=== PATIENT | female | born 1970 | race Caucasian/White ===

== ENCOUNTER 2021-03-16 11:53 | Emergency (ER) | payer OTHER ==
[2021-03-16] MEDS ORDERED: ZITHROMAX250 MG PO (13:52)
[2021-03-16] MEDS ORDERED: DELSYM30 MG/5 ML PO (13:52)
[2021-03-16] MEDS ORDERED: PREDNISONE50 MG PO (13:52)
[2021-03-16] MEDS ORDERED: ATROVENT-HFA12.9 GM INH (13:52)
== END 2021-03-16 14:12 | disposition home or self-care (01) ==
LOC: ER1 11:53
DX: U07.1 COVID-19 (principal)
CPT/HCPCS: 71045; 96372; 99283; J1100; U0002